=== PATIENT | male | born 1965 | race Caucasian/White ===

== ENCOUNTER → 2017-10-02 | Outpatient (CLI) | payer OTHER ==
--- NOTE | 2017-10-02 08:55 | US ---
EXAMINATION TYPE: US gallbladder DATE OF EXAM: 10/02/2017 COMPARISON: US CLINICAL HISTORY: Gallbladder Polyp K82.4. EXAM MEASUREMENTS: Liver Length: 12.9 cm Gallbladder Wall: 0.2 cm CBD: 0.3 cm Right Kidney: 9.3 x 4.0 x 5.1 cm Pancreas: not visualized due to midline bowel gas Liver: echogenic as compared to kidney Gallbladder: no stones seen, anterior fold creating appearance of polyp on gallbladder wall. Evidence for sonographic Lock's sign: No CBD: wnl Right Kidney: No hydronephrosis or masses seen IMPRESSION: 1. Mild fatty hepatic infiltration suspected.
== END | disposition home or self-care (01) ==
LOC: RADUSWWP 06:58
PROVIDERS: ATTEND Surgery
DX: K82.4 Cholesterolosis of gallbladder (principal)
CPT/HCPCS: 76705